=== PATIENT | female | born 1995 | race Caucasian/White ===

== ENCOUNTER 2017-01-14 12:41 | Emergency (ER) | payer BC ==
[2017-01-14 12:45] VITALS: BP 142/74
--- NOTE | 2017-01-14 13:19 | ER Document Report ---
ED Medical Screen (RME) - General Chief Complaint: Vaginal Bleeding Stated Complaint: VAGINAL BLEEDING Time Seen by Provider: 01/14/17 12:46 Mode of Arrival: Ambulatory Information source: Patient TRAVEL OUTSIDE OF THE [place] IN LAST 30 DAYS: No - HPI Patient complains to provider of: Heavy vaginal bleeding Notes: 01/14/17 13:18 Patient is a 21-year-old female presenting to the emergency room complaining of heavy vaginal bleeding 1 months duration, states she has an Implanon for the past year, was seen by her DIRECTOR OUTCOMES approximately 1 month ago and started on hormone therapy which has not resolved her symptoms, she did not make a 3 week follow-up with her DIRECTOR OUTCOMES - Related Data Allergies/Adverse Reactions: No Known Allergies Allergy (Verified 01/14/17 12:43) Past Medical History Renal/ Medical History: Denies: Hx Peritoneal Dialysis Psychiatric Medical History: Reports: Hx Depression - Immunizations Immunizations up to date: Yes Physical Exam - Vital signs Vitals: Temp Pulse Resp BP Pulse Ox 99.2 F 95 H 17 142/74 H 98 01/14/17 12:43 01/14/17 12:43 01/14/17 12:43 01/14/17 12:43 01/14/17 12:43 Course - Vital Signs Vital signs: Temp Pulse Resp BP Pulse Ox 99.2 F 95 H 17 142/74 H 98 01/14/17 12:43 01/14/17 12:43 01/14/17 12:43 01/14/17 12:43 01/14/17 12:43
[2017-01-14 14:21] LABS: ABSOLUTE LYMPHOCYTES (AUTO) 2.5 10^3/uL (0.5-4.7); ABSOLUTE MONOCYTES (AUTO) 0.6 10^3/uL (0.1-1.4); ABSOLUTE NEUT (AUTO) 4.5 10^3/uL (1.7-8.2); BASOPHILS % (AUTO) 0.5 % (0-2); EOSINOPHILS % (AUTO) 0.1 % (0-6); HEMATOCRIT 42.1 % (36.0-47.0); HEMOGLOBIN 14.1 g/dL (12.0-15.5); HGB HCT DIFFERENCE 0.2; LYMPHOCYTES % (AUTO) 32.5 % (13-45); MEAN CORPUSCULAR HEMOGLOBIN 27.7 pg (27.0-33.4); MEAN CORPUSCULAR HGB CONC 33.6 g/dL (32.0-36.0); MEAN CORPUSCULAR VOLUME 83 fl (80-97); MONOCYTES % (AUTO) 7.7 % (3-13); RED CELL DISTRIBUTION WIDTH 13.4 % (11.5-14.0); SEGMENTED NEUTROPHILS % (AUTO) 59.2 % (42-78); WHITE BLOOD COUNT 7.6 10^3/uL (4.0-10.5)
[2017-01-14 14:22] LABS: ALANINE AMINOTRANSFERASE 42 U/L (5-35); ALBUMIN 4.8 g/dL (3.7-5.6); ALKALINE PHOSPHATASE 91 U/L (50-135); ANION GAP 13 (5-19); ASPARTATE AMINO TRANSFERASE 24 U/L (5-30); BILIRUBIN,DIRECT 0.3 mg/dL (0.0-0.4); BILIRUBIN,TOTAL 0.6 mg/dL (0.2-1.3); BLOOD UREA NITROGEN 15 mg/dL (7-20); CALCIUM 10.4 mg/dL (8.4-10.2); CARBON DIOXIDE 24 mmol/L (22-30); CHLORIDE 106 mmol/L (98-107); CREATININE RESULT 0.54 mg/dL (0.52-1.25); GLUCOSE 83 mg/dL (75-110); POTASSIUM 4.2 mmol/L (3.6-5.0); SODIUM 142.7 mmol/L (137-145); TOTAL PROTEIN 7.5 g/dL (6.3-8.2)
--- NOTE | 2017-01-14 15:08 | RADIOLOGY REPORT (SQ) ---
EXAM DESCRIPTION: U/S NON OB PEL W/DOPPLER COMPLETED DATE/TIME: 01/14/2017 2:47 pm REASON FOR STUDY: cramping, bleeding COMPARISON: None. TECHNIQUE: Dynamic and static grayscale images acquired of the pelvis via transabdominal approach an d recorded on PACS. Additional selected color Doppler and spectral images recorded. LIMITATIONS: None. FINDINGS: UTERUS: Contour normal. No mass. Uterus is by 3.5 x 3.5 cm in size ENDOMETRIAL STRIPE: No focal or generalized thickening. No masses. Endometrium 3 mm in thickness. CERVIX: No nabothian cysts. Cervix closed, 2.3 cm in length. RIGHT OVARY: No abnormal masses. Right ovary 2.8 x 2.2 x 1.7 cm. RIGHT OVARY DOPPLER: Normal arterial vascular flow without evidence for torsion. LEFT OVARY: No abnormal masses. Left ovary 2.2 x 1.9 x 1.8 cm. LEFT OVARY DOPPLER: Normal arterial vascular flow without evidence for torsion. FREE FLUID: None noted. OTHER: No other significant finding. IMPRESSION: NORMAL PELVIC ULTRASOUND BY TRANSABDOMINAL TECHNIQUE. TECHNICAL DOCUMENTATION: JOB ID: [id number] [employer]- All Rights Reserved
--- NOTE | 2017-01-14 16:19 | ER Document Report ---
ED GI/ - General Chief Complaint: Vaginal Bleeding Stated Complaint: VAGINAL BLEEDING Time Seen by Provider: 01/14/17 12:46 Mode of Arrival: Ambulatory Information source: Patient TRAVEL OUTSIDE OF THE [place] IN LAST 30 DAYS: No - HPI Patient complains to provider of: Vaginal bleeding Timing/Duration: Persistent Quality of pain: Achy, Cramping Severity at maximum: Mild Location: Pelvis Vaginal bleeding (Compared to normal period): Heavier Associated symptoms: None Notes: 01/14/17 16:18 01/14/17 13:18 Patient is a 21-year-old female presenting to the emergency room complaining of heavy vaginal bleeding 1 months duration, states she has an Implanon for the past year, was seen by her STITCH BURNISHER approximately 1 month ago and started on hormone therapy which has not resolved her symptoms, she did not make a 3 week follow-up with her STITCH BURNISHER - Related Data Allergies/Adverse Reactions: No Known Allergies Allergy (Verified 01/14/17 12:43) Past Medical History - General Information source: Patient - Social History Smoking Status: Former Smoker Chew tobacco use (# tins/day): No Frequency of alcohol use: None Drug Abuse: None Family History: Reviewed & Not Pertinent Renal/ Medical History: Denies: Hx Peritoneal Dialysis Psychiatric Medical History: Reports: Hx Depression - Immunizations Immunizations up to date: Yes Review of Systems - Review of Systems Constitutional: No symptoms reported EENT: No symptoms reported Cardiovascular: No symptoms reported Respiratory: No symptoms reported Gastrointestinal: No symptoms reported Genitourinary: No symptoms reported Female Genitourinary: See HPI Musculoskeletal: No symptoms reported Skin: No symptoms reported Hematologic/Lymphatic: No symptoms reported Neurological/Psychological: No symptoms reported -: Yes All other systems reviewed and negative Physical Exam - Vital signs Vitals: Temp Pulse Resp BP Pulse Ox 99.2 F 95 H 17 142/74 H 98 01/14/17 12:43 01/14/17 12:43 01/14/17 12:43 01/14/17 12:43 01/14/17 12:43 - Notes Notes: - General General appearance: Appears well, Alert In distress: None - HEENT Head: Normocephalic, Atraumatic Eyes: Normal Conjunctiva: Normal Extraocular movements intact: Yes Eyelashes: Normal Pupils: PERRL - Respiratory Respiratory status: No respiratory distress - Cardiovascular Rhythm: Regular - Abdominal Inspection: Normal - Back Back: Normal - Extremities General upper extremity: Normal inspection General lower extremity: Normal inspection - Neurological Neuro grossly intact: Yes Orientation: AAOx4 Sue Coma Scale Eye Opening: Spontaneous Sue Coma Scale Verbal: Oriented [place] Coma Scale Motor: Obeys Commands Sue Coma Scale Total: 15 - Psychological Associated symptoms: Normal affect, Normal mood - Skin Skin Temperature: Warm Skin Moisture: Dry Skin Color: Normal Course - Re-evaluation Re-evalutation: 01/14/17 16:18 Lab and imaging findings discussed with patient at bedside which are unremarkable, she was strongly encouraged to follow-up with her STITCH BURNISHER or return if symptoms worsen, patient acknowledges understanding and agreement with this plan - Vital Signs Vital signs: Temp Pulse Resp BP Pulse Ox 99.2 F 95 H 17 142/74 H 98 01/14/17 12:43 01/14/17 12:43 01/14/17 12:43 01/14/17 12:43 01/14/17 12:43 - Laboratory Result Diagrams: 01/14/17 13:47 01/14/17 13:47 Laboratory results interpreted by me: 01/14/17 13:47 Calcium 10.4 H ALT 42 H - Diagnostic Test Radiology reviewed: Image reviewed, Reports reviewed Discharge - Discharge Clinical Impression: Dysfunctional uterine bleeding Condition: Stable Disposition: HOME, SELF-CARE Instructions: Dysfunctional Uterine Bleeding ([facility]) Additional Instructions: Follow up with your primary care provider in one to 2 days. Return to the emergency room immediately if symptoms worsen or any additional concerns.
== END 2017-01-14 16:26 | disposition home or self-care (01) ==
LOC: ER 12:41
DX: N93.8 Other specified abnormal uterine and vaginal bleeding (principal); Z97.5 Presence of (intrauterine) contraceptive device; Z79.899 Other long term (current) drug therapy; Z87.891 Personal history of nicotine dependence
CPT/HCPCS: 36415; 76856; 80053; 84703; 85025; 93976; 99284

== ENCOUNTER 2017-04-03 21:08 | Emergency (ER) | payer BC ==
--- NOTE | 2017-04-04 00:17 | ER Document Report ---
ED General - General Chief Complaint: Possible overdose Tramadol Stated Complaint: POSSIBLE OVERDOSE Time Seen by Provider: 04/03/17 21:55 Notes: Patient is a 21-year-old female with a past medical history of depression and insomnia who presents after ingesting approximately 400 mg of tramadol over the course of approximately 4 hours. Patient states that she did this in an attempt to go to sleep. She states she did this because her doxepin had run out and she had not filled her prescription again. She is adamant that there was no attempt to harm herself and she denies any suicidal or homicidal ideation. No delusions or hallucinations. She states that she decided to come to the emergency department at the request of her friend when they became increasingly concerned about her lethargy, intermittent confusion and falling asleep during conversation. She has never had similar episodes in the past. She denies any additional coingestions today. TRAVEL OUTSIDE OF THE [place] IN LAST 30 DAYS: No - Related Data Allergies/Adverse Reactions: No Known Allergies Allergy (Verified 01/14/17 12:43) Past Medical History - General Information source: Patient - Social History Smoking Status: Never Smoker Chew tobacco use (# tins/day): No Frequency of alcohol use: None Drug Abuse: None Lives with: Friend Family History: Reviewed & Not Pertinent Patient has suicidal ideation: No Patient has homicidal ideation: No Renal/ Medical History: Denies: Hx Peritoneal Dialysis Psychiatric Medical History: Reports: Hx Attention Deficit Hyperactivity Disorder, Hx Bipolar Disorder, Hx Depression - Immunizations Immunizations up to date: Yes Review of Systems - Review of Systems Notes: Constitutional: Negative for fever. HENT: Negative for sore throat. Eyes: Negative for visual changes. Cardiovascular: Negative for chest pain. Respiratory: Negative for shortness of breath. Gastrointestinal: Negative for abdominal pain, vomiting or diarrhea. Genitourinary: Negative for dysuria. Musculoskeletal: Negative for back pain. Skin: Negative for rash. Neurological: Negative for headaches, weakness or numbness. 10 point ROS negative except as marked above and in HPI. Physical Exam - Vital signs Vitals: Temp Pulse Resp BP Pulse Ox 99.2 F 98 H 16 143/91 H 98 04/03/17 21:16 04/03/17 21:16 04/03/17 21:16 04/03/17 21:16 04/03/17 21:16 Interpretation: Normal Notes: PHYSICAL EXAMINATION: GENERAL: Well-appearing, well-nourished and in no acute distress. HEAD: Atraumatic, normocephalic. EYES: Pupils equal round and reactive to light, extraocular movements intact, sclera anicteric, conjunctiva are normal. ENT: nares patent, oropharynx clear without exudates. Moist mucous membranes. NECK: Normal range of motion, supple without lymphadenopathy LUNGS: Breath sounds clear to auscultation bilaterally and equal. No wheezes rales or rhonchi. HEART: Regular rate and rhythm without murmurs ABDOMEN: Soft, nontender, normoactive bowel sounds. No guarding, no rebound. No masses appreciated. EXTREMITIES: Normal range of motion, no pitting or edema. No cyanosis. NEUROLOGICAL: No focal neurological deficits. Moves all extremities spontaneously and on command. PSYCH: Normal mood, normal affect. SKIN: Warm, Dry, normal turgor, no rashes or lesions noted. Course - Re-evaluation Re-evalutation: 04/04/17 00:14 Patient presents after taking approximately a total of 400 mg of tramadol over approximately 4 hours presenting with concerns of some degree of lethargy and confusion since this ingestion. Patient is adamant that she was not trying to harm herself in any way shape or form. She states she was taking this medications as she had run out of doxepin and could not sleep. Poison control was contacted and recommended a total of 8 hours of monitoring from the last ingestion of tramadol. They did also mention that Tylenol level could be obtained 4 hours from time of presentation but the patient and her significant other at the bedside are very clear that she was not at all trying to harm herself today, she came here voluntarily as she herself was worried about the symptoms she was having after ingesting tramadol. Will monitor per recommendations until 0400 and patient will then be medically cleared for discharge. 04/04/17 02:19 Patient continues to be asymptomatic, resting comfortably, wakes easily. Will plan for discharge at 4 AM. Verbal discharge instructions given a the bedside and opportunity for questions given. Medication warnings reviewed. Patient is in agreement with this plan and has verbalized understanding of return precautions and the need for primary care follow-up in the next 24-72 hours. - Vital Signs Vital signs: Temp Pulse Resp BP Pulse Ox 99.2 F 98 H 16 143/91 H 98 04/03/17 21:16 04/03/17 21:16 04/03/17 21:16 04/03/17 21:16 04/03/17 21:16 Discharge - Discharge Clinical Impression: Lethargy Accidental medication overdose Qualifiers: Encounter type: initial encounter Qualified Code(s): T50.901A - Poisoning by unspecified drugs, medicaments and biological substances, accidental ( unintentional), initial encounter Condition: Good Disposition: HOME, SELF-CARE Additional Instructions: Please return if you have thoughts of wanting to hurt yourself, hurt others, or have any other symptoms that are concerning to you.
[2017-04-04 04:30] VITALS: BP 126/80
== END 2017-04-04 04:30 | disposition home or self-care (01) ==
LOC: ER 21:08
DX: T40.4X1A Poisoning by other synthetic narcotics, accidental (unintentional), initial encounter (principal); R53.83 Other fatigue; R41.0 Disorientation, unspecified; F32.9 Major depressive disorder, single episode, unspecified; G47.00 Insomnia, unspecified; T43.016A Underdosing of tricyclic antidepressants, initial encounter; Z91.128 Patient's intentional underdosing of medication regimen for other reason; Z91.14 Patient's other noncompliance with medication regimen
CPT/HCPCS: 99284

== ENCOUNTER 2017-04-04 16:20 | Emergency (ER) | payer BC ==
--- NOTE | 2017-04-04 16:59 | ER Document Report ---
ED Medical Screen (RME) - General Chief Complaint: Overdose Stated Complaint: POSSIBLE OVERDOSE Time Seen by Provider: 04/04/17 16:47 Notes: This 21-year-old female patient brought to emergency room by EMS after overdosing on Ultram. She reports taking 400 mg about tooth 30 p.m. today to calm her nerves. She was seen here last night for similar 400 mg overdose that she took trying to get sleep. She states is because she ran out of her doxepin. Her boyfriend reports they were on the way to [facility] to check her in their and when she got there she was drowsy so they called 911 and sent her to the emergency room to be medically cleared. During my discussion with her about what is going on, she wanted to leave to have a cigarette I told her there is no smoking in the hospital property and given her overdose 2 days in a row that we were not going to let her sign out like she requested to go smoke and leave the hospital property she has what would happen and and after trying to reason with her multiple times, I told her we would fill out IVC commitment papers and have the wing scorer department pick her up and bring her back in handcuffs. I had told her we would give her a nicotine patch, this was not satisfactory to her so she On and on until I had to tell her that if she left property we would send the wing scorer after her with IVC paperwork. TRAVEL OUTSIDE OF THE [place] IN LAST 30 DAYS: No - Related Data Allergies/Adverse Reactions: No Known Allergies Allergy (Verified 04/04/17 16:29) Past Medical History - Social History Chew tobacco use (# tins/day): No Frequency of alcohol use: None Drug Abuse: None Renal/ Medical History: Denies: Hx Peritoneal Dialysis Psychiatric Medical History: Reports: Hx Attention Deficit Hyperactivity Disorder, Hx Bipolar Disorder, Hx Depression - Immunizations Immunizations up to date: Yes Physical Exam - Vital signs Vitals: Temp Pulse Resp BP Pulse Ox 99.4 F 84 16 130/74 H 95 04/04/17 16:33 04/04/17 16:33 04/04/17 16:33 04/04/17 16:33 04/04/17 16:33 Course - Vital Signs Vital signs: Temp Pulse Resp BP Pulse Ox 99.4 F 84 16 130/74 H 95 04/04/17 16:33 04/04/17 16:33 04/04/17 16:33 04/04/17 16:33 04/04/17 16:33
[2017-04-04 18:23] LABS: APPEARANCE,URINE SLIGHTLY-CLOUDY; BILIRUBIN,URINE NEGATIVE (NEGATIVE); COLOR,URINE YELLOW; GLUCOSE, URINE NEGATIVE (NEGATIVE); KETONES,URINE TRACE mg/dL (NEGATIVE); LEUKOCYTE ESTERASE,URINE NEGATIVE (NEGATIVE); NITRITE,URINE NEGATIVE (NEGATIVE); PROTEIN,URINE NEGATIVE (NEGATIVE); URINE SPECIFIC GRAVITY 1.026; UROBILINOGEN,URINE NEGATIVE mg/dL (<2.0)
[2017-04-04 18:41] LABS: URINE AMPHETAMINES SCREEN NEGATIVE; URINE BARBITURATES SCREEN NEGATIVE; URINE BENZODIAZEPINES SCREEN NEGATIVE; URINE COCAINE SCREEN NEGATIVE; URINE MARIJUANA (THC) SCREEN UNCONFIRMED POSITIVE; URINE METHADONE SCREEN NEGATIVE; URINE PHENCYCLIDINE SCREEN NEGATIVE
[2017-04-04 18:47] LABS: ABSOLUTE MONOCYTES (AUTO) 0.7 10^3/uL (0.1-1.4); ABSOLUTE NEUT (AUTO) 4.8 10^3/uL (1.7-8.2); BASOPHILS % (AUTO) 0.3 % (0-2); HEMOGLOBIN 13.4 g/dL (12.0-15.5); LYMPHOCYTES % (AUTO) 35.2 % (13-45); MEAN CORPUSCULAR HEMOGLOBIN 27.1 pg (27.0-33.4); MEAN CORPUSCULAR HGB CONC 32.7 g/dL (32.0-36.0); MEAN CORPUSCULAR VOLUME 83 fl (80-97); MONOCYTES % (AUTO) 8.5 % (3-13); PLATELET COUNT 353 10^3/uL (150-450); RED BLOOD COUNT 4.95 10^6/uL (3.72-5.28); RED CELL DISTRIBUTION WIDTH 13.4 % (11.5-14.0); TOTAL CELLS COUNTED % (AUTO) 100 %; WHITE BLOOD COUNT 8.6 10^3/uL (4.0-10.5)
[2017-04-04 19:03] LABS: ALANINE AMINOTRANSFERASE 24 U/L (5-35); ALBUMIN 4.5 g/dL (3.7-5.6); ALKALINE PHOSPHATASE 80 U/L (50-135); ANION GAP 10 (5-19); ASPARTATE AMINO TRANSFERASE 25 U/L (5-30); BILIRUBIN,DIRECT 0.3 mg/dL (0.0-0.4); BILIRUBIN,TOTAL 0.6 mg/dL (0.2-1.3); BLOOD UREA NITROGEN 17 mg/dL (7-20); CALCIUM 10.3 mg/dL (8.4-10.2); CARBON DIOXIDE 27 mmol/L (22-30); CHLORIDE 105 mmol/L (98-107); GLUCOSE 78 mg/dL (75-110); POTASSIUM 4.2 mmol/L (3.6-5.0); SODIUM 141.8 mmol/L (137-145)
[2017-04-04 19:04] LABS: ACETAMINOPHEN < 10 ug/mL (10-30); ALCOHOL < 10 mg/dL (NONE DETECTED); SALICYLATE < 1.0 mg/dL (2.0-20.0)
--- NOTE | 2017-04-04 20:03 | ER Document Report ---
ED Psych Disorder / Suicide - General Chief Complaint: Overdose Stated Complaint: POSSIBLE OVERDOSE Time Seen by Provider: 04/04/17 16:47 Mode of Arrival: Ambulatory Information source: Patient, Friend, Emergency Med Personnel, COUNT INCLUDES THE [facility] Records Notes: This 21-year-old female patient was brought to emergency room by EMS from the entrance of [facility] due to drowsiness after ingesting 400 mg of tramadol this afternoon about 2:30 PM. She took the medicine today to calm her nerves. She was seen here yesterday for a 400 mg tramadol overdose which she took to get sleep. She reports both episodes were due to running out of doxepin and wanting something to help her sleep or calm her nerves. The staff at [facility] wanted her to be medically cleared before they would accept her because they do not have the medical staff to treat an overdose. At this time the patient is wide awake, wanting to leave to go smoke a cigarette. She was told that would not be allowed due to 2 consecutive days of overdosing. She would need to be thoroughly evaluated and cleared of an acute medical emergency prior to being allowed to leave the facility. TRAVEL OUTSIDE OF THE [place] IN LAST 30 DAYS: No - Related Data Allergies/Adverse Reactions: No Known Allergies Allergy (Verified 04/04/17 16:29) Past Medical History - General Information source: Patient, Friend, Emergency Med Personnel, COUNT INCLUDES THE [facility] Records - Social History Smoking Status: Current Every Day Smoker Cigarette use (# per day): Yes Chew tobacco use (# tins/day): No Smoking Education Provided: No Frequency of alcohol use: None Drug Abuse: None Occupation: Unemployed Lives with: Spouse/Significant other, Friend Family History: Reviewed & Not Pertinent Patient has suicidal ideation: No Patient has homicidal ideation: No - Medical History Medical History: Negative Psychiatric Medical History: Reports: Hx Attention Deficit Hyperactivity Disorder, Hx Bipolar Disorder, Hx Depression Surgical Hx: Negative - Immunizations Immunizations up to date: Yes Review of Systems - Review of Systems Constitutional: No symptoms reported EENT: No symptoms reported Cardiovascular: No symptoms reported Respiratory: No symptoms reported Gastrointestinal: No symptoms reported Genitourinary: No symptoms reported Female Genitourinary: No symptoms reported Musculoskeletal: No symptoms reported Skin: No symptoms reported Hematologic/Lymphatic: No symptoms reported Neurological/Psychological: Depression, Anxiety Physical Exam - Vital signs Vitals: Temp Pulse Resp BP Pulse Ox 99.4 F 84 16 130/74 H 95 04/04/17 16:33 04/04/17 16:33 04/04/17 16:33 04/04/17 16:33 04/04/17 16:33 Interpretation: Normal - General General appearance: Appears well, Alert In distress: None - HEENT Head: Normocephalic, Atraumatic Eyes: Normal Pupils: PERRL Neck: Supple - Respiratory Respiratory status: No respiratory distress - Cardiovascular Rhythm: Regular - Abdominal Inspection: Normal - Back Back: Normal - Extremities General upper extremity: Normal inspection General lower extremity: Normal inspection - Neurological Neuro grossly intact: Yes - Psychological Associated symptoms: Angry, Depressed Course - Re-evaluation Re-evalutation: 04/04/17 20:08 The patient has remained alert oriented with no obvious side effects from her overdose now for several hours. She will be discharged with her friend to go to [facility] at this time. - Vital Signs Vital signs: Temp Pulse Resp BP Pulse Ox 99.4 F 84 16 130/74 H 95 04/04/17 16:33 04/04/17 16:33 04/04/17 16:33 04/04/17 16:33 04/04/17 16:33 - Laboratory Result Diagrams: 04/04/17 18:35 04/04/17 18:35 Laboratory results interpreted by me: 04/04/17 04/04/17 17:50 18:35 Calcium 10.3 H Urine Ketones TRACE H Salicylates < 1.0 L Acetaminophen < 10 L - EKG Interpretation by Hi EKG shows normal: Sinus rhythm, [place], Intervals, QRS Complexes, ST-T Waves Rate: Normal - 71 Rhythm: NSR Discharge - Discharge Clinical Impression: Overdose Qualifiers: Encounter type: initial encounter Injury intent: undetermined intent Qualified Code(s): T50.904A - Poisoning by unspecified drugs, medicaments and biological substances, undetermined, initial encounter Condition: Stable Disposition: PSYCH HOSP/UNIT Additional Instructions: Overdose: You have taken more medication than you should have. After your evaluation and care, it is felt that your overdose is not likely to be harmful or of any significant consequences to you and you are being discharged. In the future, you should be careful not to take more medications than what is prescribed for you. Although your overdose does not seem to be of any danger to you at this time, if you develop any unusual or unexpected symptoms after your discharge, you should return to the Emergency Department immediately for re-evaluation. (NO) Medical Clearance: This evaluation in the Emergency Department at [facility] does not constitute, nor is it intended in any way to be, a "medical clearance" for admission to [facility] and/or [facility], or to [facility], or to any other psychiatric institution. The Emergency Department has the responsibility and the obligation to evaluate and treat and stabilize emergency medical conditions. This facility and its physician staff do not certify any patients as "medically clear". Responsibility for a patient's future medical problems and condition after discharge from the Emergency Department at [facility] will be the responsibility of the staff at [facility] and/ or [facility] or of [facility], or of whichever other psychiatric institution to which the patient is transferred or admitted. The Emergency Department at [facility] always remains available to evaluate and treat any and all persons for emergency medical conditions at any time. AT THIS TIME THERE IS NO IDENTIFIABLE MEDICAL CONDITION NEEDING STABILIZATION OR TREATMENT. YOU MAY GO TO [facility].
[2017-04-04 20:11] VITALS: BP 142/85
--- NOTE | 2017-04-05 10:26 | EKG REPORT ---
SEVERITY:- NORMAL ECG - SINUS RHYTHM : Confirmed by: Krystal Lackey 05-Apr-2017 10:26:32
== END 2017-04-04 20:12 ==
LOC: ER 16:20
DX: T40.4X1A Poisoning by other synthetic narcotics, accidental (unintentional), initial encounter (principal); F17.210 Nicotine dependence, cigarettes, uncomplicated
CPT/HCPCS: 36415; 80053; 80307; 81001; 84703; 85025; 93005; 93010; 99285

== ENCOUNTER 2017-07-03 03:28 | Emergency (ER) | payer BC ==
[2017-07-03] MEDS ORDERED: ONDANSETRON 4 MG TAB.RAPDIS ONE (03:36)
[2017-07-03] MEDS ORDERED: FENTANYL CITRATE INJ/PF 100 MCG/2 ML AMPUL IV ONE (04:16)
[2017-07-03] MEDS ORDERED: NORMAL SALINE 1000 ML 1,000 ML IV ONE (04:17)
--- NOTE | 2017-07-03 04:19 | ER Document Report ---
ED General - General Chief Complaint: Vomiting Stated Complaint: ABDOMINAL PAIN Time Seen by Provider: 07/03/17 04:11 Notes: Patient is a 22-year-old female who presents with complaints of abdominal pain. Dull pain is mostly upper. She has had vomiting. Started after eating at a cookout. She had one episode diarrhea since she has been here. No blood in her stool. No blood or emesis. No fevers. She denies similar episodes in the past. She is allergic to any medications. She takes some medications for ADHD. TRAVEL OUTSIDE OF THE [place] IN LAST 30 DAYS: No - Related Data Allergies/Adverse Reactions: No Known Allergies Allergy (Verified 04/04/17 16:29) Past Medical History - Social History Smoking Status: Never Smoker Frequency of alcohol use: None Drug Abuse: None Family History: Reviewed & Not Pertinent Renal/ Medical History: Denies: Hx Peritoneal Dialysis Psychiatric Medical History: Reports: Hx Attention Deficit Hyperactivity Disorder, Hx Bipolar Disorder, Hx Depression - Immunizations Immunizations up to date: Yes Review of Systems - Review of Systems Notes: My Normal Review Basic REVIEW OF SYSTEMS: CONSTITUTIONAL : Denies fever, chills, or sweats. Denies recent illness. RESPIRATORY: Denies cough, cold, or chest congestion. Denies shortness of breath, difficulty breathing, or wheezing. GASTROINTESTINAL: Upper abdominal pain and vomiting. MUSCULOSKELETAL: Denies neck or back pain or joint pain or swelling. SKIN: Denies rash or skin lesions. NEUROLOGICAL: Denies altered mental status or loss of consciousness. Denies headache. Denies weakness or paralysis or loss of use of either side. Denies problems with gait or speech. Denies sensory or motor loss. ALL OTHER SYSTEMS REVIEWED AND NEGATIVE. Physical Exam - Vital signs Vitals: Temp Pulse Resp BP Pulse Ox 98.9 F 131 H 20 136/90 H 97 07/03/17 03:33 07/03/17 03:33 07/03/17 03:33 07/03/17 03:33 07/03/17 03:33 - Notes Notes: General Appearance: Well nourished, alert, cooperative, no acute distress, mild to moderate obvious discomfort. Vitals: reviewed, See vital signs table. Head: no swelling or tenderness to the head Eyes: PERRL, EOMI, Conjuctiva clear Mouth: No decreasd moisture Lungs: No wheezing, No rales, No rhonci, No accessory muscle use, good air exchange bilaterally. Heart: Tachycardic rate, Regular rythm, No murmur, no rub Abdomen: Normal BS, soft, No rigidity, mild to moderate diffuse tenderness palpation little bit worse over the epigastric region. Abdominal tenderness, No guarding, no rebound, no abdominal masses, no organomegaly Extremities: strength 5/5 in all extremities, good pulses in all extremities, no swelling or tenderness in the extremities, no edema. Skin: warm, dry, appropriate color, no rash Neuro: speech clear, oriented x 3, normal affect, responds appropriately to questions. Course - Re-evaluation Re-evalutation: 07/03/17 07:33 Patient is abdominal pain is improved. She looks well. She said no further vomiting. She did receive IV fluids. Her ultrasound of her gallbladder is negative. I feel she is safe to be discharged home. I suspect she may have had some food poisoning being that her symptoms started immediately after eating a cookout. I strongly encouraged her return to ER if she has worsening abdominal pain, intractable vomiting, bloody diarrhea, fevers, or she feels unwell. Patient agrees with plan will be discharged home. Dictation of this chart was performed using voice recognition software; therefore, there may be some unintended grammatical errors. - Vital Signs Vital signs: Temp Pulse Resp BP Pulse Ox 98.9 F 131 H 20 136/90 H 97 07/03/17 03:33 07/03/17 03:33 07/03/17 03:33 07/03/17 03:33 07/03/17 03:33 - Laboratory Result Diagrams: 07/03/17 04:45 07/03/17 04:45 Laboratory results interpreted by me: 07/03/17 07/03/17 07/03/17 04:45 04:45 05:45 WBC 14.0 H RBC 5.51 H MCH 26.8 L Band Neutrophils % 6 H Abs Neuts (Manual) 11.5 H BUN 25 H Creatinine 0.49 L Glucose 128 H AST 53 H Urine Ketones 25 H Discharge - Discharge Clinical Impression: Vomiting and diarrhea Abdominal pain Qualifiers: Abdominal location: unspecified location Qualified Code(s): R10.9 - Unspecified abdominal pain Condition: Good Disposition: HOME, SELF-CARE Additional Instructions: Please eat a very bland diet over the next 24 hours. Please avoid fried foods, spicy foods, and acidic foods. please return to the ER immediately if you have worsening pain, fevers, intractable vomiting, or feel unwell. Prescriptions: Dicyclomine HCl [Bentyl 20 mg Tablet] 20 mg PO QID #16 tablet Metoclopramide HCl [Reglan 10 mg Tablet] 1 tab PO ASDIR PRN #15 tablet PRN Reason: Ondansetron [Zofran Odt 4 mg Tablet] 1 tab PO Q4H PRN #15 tab.rapdis PRN Reason: For Nausea/Vomiting Forms: Special Work Note
[2017-07-03 05:13] LABS: HEMATOCRIT 44.8 % (36.0-47.0); HEMOGLOBIN 14.8 g/dL (12.0-15.5); MEAN CORPUSCULAR HEMOGLOBIN 26.8 pg (27.0-33.4); MEAN CORPUSCULAR VOLUME 81 fl (80-97); PLATELET COUNT 306 10^3/uL (150-450); RED BLOOD COUNT 5.51 10^6/uL (3.72-5.28); RED CELL DISTRIBUTION WIDTH 13.8 % (11.5-14.0)
[2017-07-03 05:22] LABS: ALANINE AMINOTRANSFERASE 21 U/L (9-52); ALBUMIN 4.6 g/dL (3.5-5.0); ALKALINE PHOSPHATASE 78 U/L (38-126); ANION GAP 13 (5-19); ASPARTATE AMINO TRANSFERASE 53 U/L (14-36); BILIRUBIN,DIRECT 0.2 mg/dL (0.0-0.4); BILIRUBIN,TOTAL 0.5 mg/dL (0.2-1.3); BLOOD UREA NITROGEN 25 mg/dL (7-20); CALCIUM 9.7 mg/dL (8.4-10.2); CARBON DIOXIDE 23 mmol/L (22-30); CHLORIDE 106 mmol/L (98-107); GLUCOSE 128 mg/dL (75-110); LIPASE 29.1 U/L (23-300); POTASSIUM 4.1 mmol/L (3.6-5.0); SODIUM 141.7 mmol/L (137-145); TOTAL PROTEIN 7.2 g/dL (6.3-8.2)
[2017-07-03 05:31] LABS: ABSOLUTE MONOCYTES # (MANUAL) 0.6 10^3/uL (0.1-1.4); ABSOLUTE NEUTROPHILS# (MANUAL) 11.5 10^3/uL (1.7-8.2); BAND NEUTROPHILS % (MANUAL) 6 % (3-5); BASOPHILS % (MANUAL) 0 % (0-2); EOSINOPHILS % (MANUAL) 0 % (0-6); LYMPHOCYTES % (MANUAL) 13 % (13-45); MONOCYTES % (MANUAL) 4 % (3-13); SEGMENTED NEUTROPHILS % (MAN) 76 % (42-78); TOTAL CELLS COUNTED 100
[2017-07-03 05:32] LABS: PLATELET COMMENT ADEQUATE; RBC MORPHOLOGY COMMENT NORMO-CYTIC/CHROMIC; TOXIC VACUOLATION PRESENT
[2017-07-03] MEDS ORDERED: PROMETHAZINE HCL INJ 25 MG/1 ML VIAL IM ONE (05:33)
[2017-07-03 06:12] LABS: APPEARANCE,URINE CLEAR; BILIRUBIN,URINE NEGATIVE (NEGATIVE); COLOR,URINE YELLOW; GLUCOSE, URINE NEGATIVE (NEGATIVE); KETONES,URINE 25 mg/dL (NEGATIVE); URINE SPECIFIC GRAVITY 1.015
[2017-07-03 06:13] LABS: LEUKOCYTE ESTERASE,URINE NEGATIVE (NEGATIVE); NITRITE,URINE NEGATIVE (NEGATIVE); PROTEIN,URINE NEGATIVE (NEGATIVE); UROBILINOGEN,URINE NEGATIVE mg/dL (<2.0)
[2017-07-03] MEDS ORDERED: METOCLOPRAMIDE HCL INJ/PF 10 MG/2 ML SDV IV ONE (06:47)
[2017-07-03] MEDS ORDERED: ONDANSETRON ODT 4 MG TAB (6 TAB/ER DISP) PO PRN (07:08)
[2017-07-03 07:57] VITALS: BP 129/78
--- NOTE | 2017-07-03 08:15 | RADIOLOGY REPORT (SQ) ---
EXAM DESCRIPTION: U/S ABDOMEN LTD W/DOPPLER COMPLETED DATE/TIME: 07/03/2017 5:50 am REASON FOR STUDY: upper abdominal pain, vomiting COMPARISON: KUB 10/03/2007 TECHNIQUE: Dynamic and static grayscale images acquired of the abdomen and recorded on PACS. Additio nal selected color Doppler and spectral images recorded. LIMITATIONS: None. FINDINGS: PANCREAS: Midline pancreas unremarkable LIVER: No masses. Echotexture normal. LIVER VASCULATURE: Normal directional flow of the main portal vein and hepatic veins. GALLBLADDER: No stones. Normal wall thickness. No pericholecystic fluid. ULTRASOUND-DETECTED JULIAN'S SIGN: Negative. INTRAHEPATIC DUCTS AND COMMON DUCT: CBD and intrahepatic ducts normal caliber. No filling defects. INFERIOR VENA CAVA: Normal flow. AORTA: No aneurysm. RIGHT KIDNEY: Normal size. Normal echogenicity. No solid or suspicious masses. No hydronephrosis. No calcifications. PERITONEAL AND RIGHT PLEURAL SPACE: No ascites or effusions. OTHER: No other significant findings. IMPRESSION: NORMAL RIGHT UPPER QUADRANT ULTRASOUND. TECHNICAL DOCUMENTATION: JOB ID: [id number] [employer]- All Rights Reserved Reading location - IP/workstation name: [email or web address]
--- NOTE | 2017-07-04 22:36 | EKG REPORT ---
SEVERITY:- ABNORMAL ECG - SINUS TACHYCARDIA LEFT ATRIAL ABNORMALITY : Confirmed by: Krystal Lackey 04-Jul-2017 22:36:07
== END 2017-07-03 07:57 | disposition home or self-care (01) ==
LOC: ER 03:28
DX: R10.10 Upper abdominal pain, unspecified (principal); R10.817 Generalized abdominal tenderness; R11.10 Vomiting, unspecified; R19.7 Diarrhea, unspecified; F90.9 Attention-deficit hyperactivity disorder, unspecified type; Z79.899 Other long term (current) drug therapy; R00.0 Tachycardia, unspecified
CPT/HCPCS: 93005; 99284; 96372; 96361; 96374; 96375; 36415; 83690; 84703; 85025; 80053; 81001; 76705; 93976; 93010; S0119; J3010; J2765; J2550; J7030